=== PATIENT | male | born 1995 | race Caucasian/White ===

== ENCOUNTER 2020-12-09 13:12 | Emergency (ER) | payer MEDICAID ==
[~2020-12-09] VITALS: Ht 160 cm; Wt 81.6 kg
[2020-12-09 13:26] VITALS: BP_SYST 135
[2020-12-09] MEDS ORDERED: cefTRIAXone 250 MG VIAL IM ONE (13:45)
[2020-12-09] MEDS ORDERED: AZITHROMYCIN 250 MG TABLET PO ONE (13:45)
[2020-12-09] MEDS ORDERED: DOXY100C2 PO (14:08)
[2020-12-09] MEDS ORDERED: PERM60CR18 TP (14:08)
[2020-12-09 14:45] VITALS: BP_SYST 135
== END 2020-12-09 14:45 | disposition home or self-care (01) ==
LOC: SED 13:12
DX: A64 Unspecified sexually transmitted disease (principal)
CPT/HCPCS: 36415; 86592; 86780; 96372; 99283; J0696; Q0144

== ENCOUNTER 2020-12-15 22:47 | Emergency (ER) | payer MEDICAID ==
[~2020-12-15] VITALS: Ht 190.5 cm; Wt 74.8 kg
[~2020-12-15 22:47] MED LIST: DOXY100C2 PO; PERM60CR18 TP
[2020-12-15 23:00] VITALS: BP_SYST 132
--- NOTE | 2020-12-15 23:05 | NUR ---
Patient triaged and walked to his car. VSS and patient appears in no acute distress at this time. Awaiting available bed, and MD notified of need for MSE.
--- NOTE | 2020-12-15 23:15 | NUR ---
Pt came into ED seeking med refill of Permethrin cream, Hx of Scabies. VSS no s/s of acute distress Resting on gurney rails up. No other complaints noted
--- NOTE | 2020-12-15 23:20 | NUR ---
Dr. Quan [facility] for pt eval
--- NOTE | 2020-12-16 00:05 | NUR ---
VSS no s/s of acute distress Resting on gurney rails up
[2020-12-16] MEDS ORDERED: PERM60CR18 TP (00:46)
[2020-12-16 00:53] VITALS: BP_SYST 132
--- NOTE | 2020-12-16 00:53 | NUR ---
Patient given written and verbal discharge instructions and verbalizes understanding. ER MD discussed with patient the results and treatment provided. Patient in stable condition. ID arm band removed. Rx of Permethrin given. Patient educated on pain management and to follow up with PMD. Pain Scale 0/10. Opportunity for questions provided and answered. Medication side effect fact sheet provided.
== END 2020-12-16 00:53 | disposition home or self-care (01) ==
LOC: SED 22:47
DX: R21 Rash and other nonspecific skin eruption (principal); Z79.899 Other long term (current) drug therapy
CPT/HCPCS: 99282

== ENCOUNTER 2020-12-24 21:12 | Emergency (ER) | payer MEDICAID ==
[~2020-12-24] VITALS: Ht 190.5 cm; Wt 77.1 kg
[2020-12-24 21:25] VITALS: BP_SYST 129
[2020-12-24] MEDS ORDERED: PENICILLIN G BENZATHINE 1.2 MMU/2 ML SYR IM ONE (23:45)
[2020-12-25] MEDS ORDERED: BACI15OI13 TP (00:24)
[2020-12-25] MEDS ORDERED: metroNIDAZOLE 500 MG TABLET PO ONE (01:00)
[2020-12-25 01:25] VITALS: BP_SYST 143
[2020-12-27 02:07] LABS: CHLAMYDIA TRACHOMATIS NAA Negative (Negative); NEISSERIA GONORRHOEAE NAA Negative (Negative)
== END 2020-12-25 01:25 | disposition home or self-care (01) ==
LOC: SED 21:12
DX: A51.0 Primary genital syphilis (principal); A64 Unspecified sexually transmitted disease; Z79.899 Other long term (current) drug therapy
CPT/HCPCS: 87491; 87591; 99283; 96372; J0561

== ENCOUNTER 2021-01-18 12:53 | Emergency (ER) | payer MEDICAID ==
[~2021-01-18] VITALS: Ht 188 cm; Wt 79.4 kg
[~2021-01-18 12:53] MED LIST changes: +BACI15OI13 TP
[2021-01-18 13:30] VITALS: BP_SYST 134
[2021-01-18] MEDS ORDERED: BEN50 PO (14:24)
[2021-01-18] MEDS ORDERED: PERM60CR18 TP ×2 (14:24→14:33)
[2021-01-18 14:42] VITALS: BP_SYST 128
== END 2021-01-18 14:42 | disposition home or self-care (01) ==
LOC: SED 12:53
DX: B86 Scabies (principal); F17.290 Nicotine dependence, other tobacco product, uncomplicated; Z79.899 Other long term (current) drug therapy
CPT/HCPCS: 99282